=== PATIENT | male | born 1990 | race Caucasian/White ===

== ENCOUNTER 2017-09-12 22:22 | Emergency (ER) | payer SELFPAY ==
[~2017-09-12] VITALS: Ht 170.2 cm; Wt 63.0 kg
--- NOTE | 2017-09-12 22:36 | NUR ---
PT RECIEVED FROM HOME BIB FRIEND C/O X1 HOUR ALERGIC REACTION TO UNKNOWN FACTOR STATING "I HAD A SLICE OF PIZZA AT WORK AND WATER AND THEN MY WHOLE FACE AND NECK STARTED TO SWELL AND ITCH". NO PAIN AT THIS TIME. NO SOB NOTED BUT HAS NASAL CONGESTION. A/OX4 VSS NAD. WILL CONTINUE TO MONITOR FOR ANY CHANGES
--- NOTE | 2017-09-12 22:51 | NUR ---
AWAITING ER MD RICARDO
[2017-09-12] MEDS ORDERED: FAMOTIDINE/PF INJ 20 MG/2 ML VIAL IV ONE ×2 (23:00→23:06)
[2017-09-12] MEDS ORDERED: diphenhydrAMINE HCL 50 MG/ML VIAL IV ONE (23:00)
[2017-09-12] MEDS ORDERED: methylPREDNISolone SOD SUCC 125 MG/2ML VIAL IV ONE (23:00)
[2017-09-12] MEDS ORDERED: EPINEPHRINE (1:1000) MDV 30 MG/30ML VIAL SUBCUT ONE (23:00)
--- NOTE | 2017-09-12 23:00 | NUR ---
MARNI MEREDITH AT [facility] FOR EVAL
[2017-09-12] MEDS ORDERED: methylPREDNISolone SOD SUCC 125 MG/2ML VIAL ONE (23:06)
[2017-09-12] MEDS ORDERED: diphenhydrAMINE HCL 50 MG/ML VIAL ONE (23:06)
[2017-09-12] MEDS ORDERED: EPINEPHRINE (1:1000) MDV 30 MG/30ML VIAL ONE (23:06)
[2017-09-12] MEDS ORDERED: EPINEPHRINE (1:1000) 1 MG/ML AMPUL ONE (23:08)
--- NOTE | 2017-09-13 00:10 | NUR ---
ER MD BOYER AT BEDSIDE
[2017-09-13 01:12] VITALS: BP 147/92
== END 2017-09-13 01:18 | disposition home or self-care (01) ==
LOC: ER 22:25
DX: T78.2XXA Anaphylactic shock, unspecified, initial encounter (principal); F12.10 Cannabis abuse, uncomplicated; Y92.89 Other specified places as the place of occurrence of the external cause
CPT/HCPCS: A4606; J0171; J1200; J2930; J3490; Z7610